=== PATIENT | female | born 1990 | race Two or more races ===

== ENCOUNTER 2017-01-14 12:12 | Emergency (ER) | payer SELFPAY ==
--- NOTE | 2017-01-29 15:27 | ER ---
ADMIT: 01/14/2017 RM/LOC: ER [facility] MR#: [id number] [id number] ZACHARIAH LOGAN [address] [place] [address] Emergency Room Report SEX: F AGE: 26 : 1990 DATE: 01/14/2017 ADDENDUM: CHIEF COMPLAINT: Right lower quadrant pain. HISTORY OF PRESENT ILLNESS: This is a 26-year-old female who started having this pain about 2 days ago, and she started menstruating yesterday, which is at her mid cycle. She said she is passing some clots. This is heavier than her normal menstrual period, so she came into the ER. COURSE IN THE EMERGENCY ROOM: CBC, urine, and urine preg test was done, the preg test was negative. Urine was negative for any infection. CBC is normal. Ultrasound was done, it is negative for any acute findings. CLINICAL IMPRESSION: Menorrhalgia. DISPOSITION: Told her to go home. Use heating pad. Motrin or Tylenol for pain. Follow up with her primary care physician if she worsens. She was given Toradol here in the emergency room and she says that helped significantly. RAY Francis / Wily Bryant MD / [facility] JOB #: [id number] CC: Wily Bryant MD, Attending Physician Davon Harkins MD, Family Physician
== END 2017-01-14 14:45 | disposition home or self-care (01) ==
LOC: ER 12:12
DX: N92.0 Excessive and frequent menstruation with regular cycle (principal); Z88.5 Allergy status to narcotic agent